=== PATIENT | male | born 1975 | race Two or more races ===

== ENCOUNTER 2021-03-18 15:26 | Emergency (ER) | payer OTHER ==
[~2021-03-18] VITALS: Ht 175.3 cm; Wt 68.0 kg
== END 2021-03-18 20:43 | disposition home or self-care (01) ==
LOC: ER 15:26
DX: B34.9 Viral infection, unspecified (principal); Z11.52 Encounter for screening for COVID-19

== ENCOUNTER 2021-05-13 10:57 | Outpatient (CLI) | payer OTHER | END 2021-05-13 11:08 | disposition home or self-care (01) | LOC: RAD 10:57 | PROVIDERS: ATTEND Internal Medicine Cardiovascular Disease | DX: R07.89 Other chest pain (principal) ==

== ENCOUNTER 2021-06-25 07:12 | Outpatient (CLI) | payer OTHER | END 2021-06-25 07:34 | disposition home or self-care (01) | LOC: RAD 07:12 → MAMO-SONO 07:15 → RAD 07:34 | PROVIDERS: ATTEND Internal Medicine | DX: K21.9 Gastro-esophageal reflux disease without esophagitis (principal); N40.0 Benign prostatic hyperplasia without lower urinary tract symptoms; N28.1 Cyst of kidney, acquired; Z03.8 Encounter for observation for other suspected diseases and conditions ruled out; M75.41 Impingement syndrome of right shoulder ==

== ENCOUNTER 2025-09-05 03:29 | Emergency (ER) | payer OTHER ==
[~2025-09-05] VITALS: Ht 175.3 cm; Wt 71.7 kg
[2025-09-05 03:52] VITALS: BP 120/77; O2SAT 99
[2025-09-05] MEDS ORDERED: ACETAMINOPHEN 500 MG GEL..CAP PO ONE (03:53)
[2025-09-05] MEDS ORDERED: METHYLPREDNISOLONE SOD SUCC 125 MG VIAL IM STA (04:40)
[2025-09-05] MEDS ORDERED: IPRATROPIUM BROMIDE 0.5 MG/2.5 ML AMPUL.NEB IH SCH (04:45)
[2025-09-05] MEDS ORDERED: LEVALBUTEROL HCL 0.63 MG/3 ML SOLUTION IH SCH (04:45)
[2025-09-05] MEDS ORDERED: METHYLPREDNISOLONE SOD SUCC 40 MG VIAL ONE (04:53)
[2025-09-05] MEDS ORDERED: IPRATROPIUM BROMIDE 0.5 MG/2.5 ML AMPUL.NEB IH ONE (05:14)
[2025-09-05] MEDS ORDERED: LEVALBUTEROL HCL 0.63 MG/3 ML SOLUTION IH ONE (05:14)
[2025-09-05 06:41] LABS: INR 1.11
[2025-09-05 06:54] LABS: ALT/SGPT 63.0 U/L (12-78); AST/SGOT 66.0 U/L (15-37); BILIRUBIN TOTAL 0.9 mg/dL (0.3-1.2); BUN CREA RATIO 13.0 (7.0-25.0); CREATININE SERUM 0.91 mg/dL (0.70-1.30); GFR 87.49; GLOBULINA 3.2 G/DL (2.4-3.5); GLUCOSE FASTING 140.0 mg/dL (65-100); OSMOLALITY SERUM 280.0 MOSM/KG (275-295)
[2025-09-05 07:09] LABS: URINE APPEARANCE Clear; URINE BILIRRUBIN Negative (NEGATIVE); URINE BLOOD Moderate; URINE COLOR Yellow; URINE GLUCOSE Negative (NEGATIVE); URINE LEUKOCYTE Negative; URINE NITRATE Negative; URINE PROTEIN Trace (NEGATIVE); URINE UROBILINOGEN 1.0 E.U./dl
[2025-09-05 07:10] LABS: URINE BACTERIA 4.5 uL (0.0-1933); URINE EPITHELIAL CELLS 3.6 uL (0.0-38.8); URINE RBC 35.1 uL (0.0-20.8); URINE WBC 3.2 uL (0.0-23.2)
[2025-09-05 07:18] LABS: URINE CAST 0.42 uL (0.0-1.40); URINE KETONE 80 (NEGATIVE)
[2025-09-05 07:22] LABS: BASO % 0.6 % (0.1-1.2); EOS # 0.01 (0.04-0.54); EOS % 0.2 % (0.7-7.0); LYMPH # 0.36 (1.18-3.74); LYMPH % 7.2 % (19.3-53.1); MEAN PLATELET VOLUME 10.40 fl (9.4-12.4); MONO # 0.64 (0.24-0.82); NEUT # 3.93 (1.56-6.13); NEUT % 78.8 % (34.0-71.1); RED CELL DISTRIBUTION WIDTH 12.6 % (11.6-14.4)
[2025-09-05 07:25] LABS: MONO % 12.8 % (4.7-12.5)
[2025-09-05 07:42] LABS: COVID-19 AG NEGATIVE (NEGATIVE)
[2025-09-05] MEDS ORDERED: ALBUTEROL2.5 MG/3 M IH (08:01)
[2025-09-05] MEDS ORDERED: OSEL75CA PO (08:01)
[2025-09-05] MEDS ORDERED: BUDESONIDE0.5 MG/2 M IH (08:01)
[2025-09-05 08:13] LABS: ERYTHROCYTE SEDIMENTATION RATE 16 mm/hr (0-20)
== END 2025-09-05 08:36 | disposition home or self-care (01) ==
LOC: ER 03:30
PROVIDERS: Physician Assistant Medical
DX: J10.1 Influenza due to other identified influenza virus with other respiratory manifestations (principal); B34.8 Other viral infections of unspecified site; J20.8 Acute bronchitis due to other specified organisms; Z87.09 Personal history of other diseases of the respiratory system